=== PATIENT | female | born 1990 | race Caucasian/White ===

== ENCOUNTER 2016-10-12 13:04 | Emergency (ER) | payer SELFPAY ==
[2016-10-12] MEDS ORDERED: Sodium Chloride 0.9% 1000 ML 1,000 ML IV STA (13:26)
[2016-10-12] MEDS ORDERED: Zyprexa Zydis 5 MG PO ONE ×2 (13:27→13:44)
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
[2016-10-12] MEDS ORDERED: Sodium Chloride 0.9% 1000 ML 1,000 ML ONE (13:44)
[2016-10-12 13:46] LABS: BASOPHIL % 0.2 % (0.0-0.4); Eosinophil % 0.6 % (0.00-5.0); Granulocytes % 66.5 % (36.0-66.0); Lymphocytes % 23.9 % (24.0-44.0); Mean Cell Volume 90.4 fl (78-100); Mean Corpuscular Hemoglobin 32.1 pg (26-32); Mean Platelet Volume 9.5 fl (6-9.5); Monocytes % 8.8 % (0.0-12.0); Platelet Count 244 K/mm3 (150-450); Red Blood Count 4.58 M/mm3 (4.1-5.4); Red Cell Distribution Width 11.6 % (11.5-14.0)
[2016-10-12 13:51] LABS: ADD URINE CULTURE? YES (NO); Bacteria PACKED /HPF (NEGATIVE); Bilirubin NEGATIVE (NEGATIVE); COMPLETE URINE MICROSCOPIC? YES; Collection Type CATH; Epithelial Cells FEW /HPF (FEW); Glucose NEGATIVE (NEGATIVE); Leukocyte Esterase TRACE (NEGATIVE)
[2016-10-12 14:09] LABS: ALBUMIN 4.7 g/dL (3.4-5.0); ALKALINE PHOSPHATASE 79 U/L (46-116); BLOOD UREA NITROGEN 16 mg/dL (9-20); CHLORIDE 102 mEq/L (98-107); Carbon Dioxide 24.7 mEq/L (21-32); Glucose 104 MG/DL (70-110); Potassium 3.2 mEq/L (3.5-5.1); SGOT/AST 29 U/L (15-37); SGPT/ALT 35 U/L (12-78); SODIUM 140 mEq/L (136-145); Total Protein 7.4 gm/dL (6.4-8.2)
[2016-10-12 14:22] VITALS: O2SAT 100
[2016-10-12 15:29] VITALS: BP 136/71; PULSE 92
== END 2016-10-12 15:30 | disposition home or self-care (01) ==
LOC: ED 13:04
DX: F19.90 Other psychoactive substance use, unspecified, uncomplicated (principal); G40.909 Epilepsy, unspecified, not intractable, without status epilepticus
CPT/HCPCS: 36000; 36415; 80053; 81000; 84703; 85025; 87077; 87086; 87186; 93005; 93041; 96360; 99284; 99285; A9270-GY

== ENCOUNTER 2019-11-24 21:27 | Emergency (ER) | payer BC, OTHER ==
[2019-11-24 22:00] LABS: Absolute Neutrophil Ct (ANC) 7.84 (1.4-6.9); BASOPHIL % 0.3 % (0.0-0.4); Basophil (Absolute #) 0.04 (0-0.4); Eosinophil % 1.3 % (0.00-5.0); Eosinophil (Absolute #) 0.15 (0-0.5); Hematocrit 40.3 % (35-47); Hemoglobin 13.7 gm/dl (12.0-16.0); Lymphocyte (Absolute #) 2.71 (1.0-4.6); Lymphocytes % 22.8 % (24.0-44.0); Mean Cell Volume 91.6 fl (78-100); Mean Corpuscular Hemoglobin 31.1 pg (26-32); Mean Platelet Volume 9.3 fl (7.5-11.0); Monocyte (Absolute #) 1.14 (0.0-1.3); Monocytes % 9.6 % (0.0-12.0); Platelet Count 252 K/mm3 (150-450); Red Cell Distribution Width 11.8 % (11.5-14.0); White Blood Count 11.9 K/mm3 (4.0-10.5)
[2019-11-24 22:05] LABS: ALBUMIN 4.7 g/dL (3.5-5.0); ALKALINE PHOSPHATASE 70 U/L (38-126); ANION GAP 10.9 MEQ/L (5-15); BLOOD UREA NITROGEN 14 mg/dL (7-17); CHLORIDE 102 mmol/L (98-107); Calcium 9.2 mg/dL (8.4-10.2); Carbon Dioxide 27 mmol/L (22-30); Creatinine 1 0.68 mg/dL (0.52-1.04); EST GLOMERULAR FILTRATION RATE > 60.0 ML/MIN; Glucose 101 mg/dL (74-106); Potassium 3.5 mmol/L (3.5-5.1); SGOT/AST 28 U/L (14-36); SGPT/ALT 27 U/L (0-35); SODIUM 137 mmol/L (137-145); Total Protein 7.6 g/dL (6.3-8.2)
[2019-11-24 22:13] LABS: ACETAMINOPHEN < 10 ug/ml (10-30); SALICYLATE < 1.0 mg/dL (2-20)
[2019-11-24 22:14] LABS: ETHYL ALCOHOL < 10 mg/dL (0-10)
[2019-11-24 22:17] LABS: Appearance SLIGHTLY CLOUDY (CLEAR); Bacteria MODERATE /HPF (NEGATIVE); Bilirubin NEGATIVE (NEGATIVE); Blood MODERATE Ery/ul (0-5); Glucose NEGATIVE (NEGATIVE); Hyaline Casts 0-2 /LPF (0-2); Ketones TRACE (NEGATIVE); Leukocyte Esterase TRACE (NEGATIVE); Mucus MODERATE /HPF (NEGATIVE); Nitrite POSITIVE (NEGATIVE); Protein,Urine Dip 30 (Negative); Specific Gravity 1.028 (1.005-1.025); Urobilinogen NEGATIVE mg/dL (0-1)
[2019-11-24 22:24] LABS: Barbiturate,Urine NEGATIVE (NEGATIVE); Benzodiazepine,Urine NEGATIVE (NEGATIVE); Cocaine,Urine NEGATIVE (NEGATIVE); Methadone,Urine NEGATIVE (NEGATIVE); Opiate,Urine NEGATIVE (NEGATIVE); PCP,Urine NEGATIVE (NEGATIVE); THC,Urine POSITIVE (NEGATIVE)
--- NOTE | 2019-11-24 22:40 | ERPHSYRPT ---
- History of Present Illness Time Seen by Provider: 11/24/19 21:30 Source: patient Exam Limitations: no limitations Patient Subjective Stated Complaint: "I got pulled over and here I am." Triage Nursing Assessment: Pt presented alert et oriented x3 answering questions appropriately. Pt reported being pulled over by police. Pt denied any trauma or injury. Pt stated "I have meth and marijuana in my system." Pt denied any headache, dizziness, visual/auditory disturbances, chest pain, shortness of breath, abdominal pain, nausea/vomiting. Pupils 4mm brisk bilateral reaction. Oral mucosa pink/moist. Neck supple non-tender. Symmetrical chest expansion. Heart tones regular/clear. Lungs clear with adequate airflow. Radial pulses equal bilateral. Timing/Duration: today Severity: mild Modifying Factors: Improves With: nothing Associated Symptoms: denies symptoms Allergies/Adverse Reactions: Antihistamines - Alkylamine Allergy (Severe, Verified 11/24/19 21:31) BLADDER SHUTS DOWN cephalexin monohydrate [From Keflex] Allergy (Mild, Verified 11/24/19 21:31) Hives/VOMIT latex Allergy (Mild, Verified 11/24/19 21:31) EATS MY SKIN sulfamethoxazole [From Bactrim] Allergy (Mild, Verified 11/24/19 21:31) HIVES/VOMIT trimethoprim [From Bactrim] Allergy (Mild, Verified 11/24/19 21:31) HIVES/VOMIT erythromycin base Adverse Reaction (Mild, Verified 11/24/19 21:31) Vomiting Hx Tetanus, Diphtheria Vaccination/Date Given: No Hx Influenza Vaccination/Date Given: No Hx Pneumococcal Vaccination/Date Given: No Travel Risk - International Travel Have you traveled outside of the country in past 3 weeks: No - Coronavirus Screening Are you exhibiting any of the following symptoms?: No Close contact with a COVID-19 positive Pt in past 14-21 Days: No - Review of Systems Constitutional: No Symptoms, No Fever, No Chills Eyes: No Symptoms Ears, Nose, & Throat: No Symptoms Respiratory: No Symptoms, No Cough, No Dyspnea Cardiac: No Symptoms, No Chest Pain, No Edema, No Syncope Abdominal/Gastrointestinal: No Symptoms, No Abdominal Pain, No Nausea, No V omiting, No Diarrhea Genitourinary Symptoms: No Symptoms, Other (Patient admits to dysuria.), No Dysuria Musculoskeletal: No Symptoms, No Back Pain, No Neck Pain Skin: No Symptoms, No Rash Neurological: No Symptoms, No Dizziness, No Focal Weakness, No Sensory Changes Psychological: No Symptoms Endocrine: No Symptoms Hematologic/Lymphatic: No Symptoms Immunological/Allergic: No Symptoms All Other Systems: Reviewed and Negative - Past Medical History Pertinent Past Medical History: Yes Neurological History: Migraines ENT History: No Pertinent History Cardiac History: No Pertinent History Respiratory History: Asthma Endocrine Medical History: No Pertinent History Musculoskeletal History: No Pertinent History, Other GI Medical History: No Pertinent History History: Other Psycho-Social History: Anxiety, Depression Female Reproductive Disorders: Abnormal Uterine Bleeding, Endometriosis, Menstrual Problems, Other Other Medical History: CHRONIC BACK PAIN. 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 - Social History Smoking Status: Current every day smoker How long have you smoked: 19 Exposure to second hand smoke: Yes Alcohol Use: Socially Drug Use: marijuana, bath salts, methamphetamines Patient Lives Alone: No Significant Family History: no pertinent family hx - Female History Hx Now: No - Nursing Vital Signs Nursing Vital Signs: Initial Vital Signs Temperature 98.6 F 11/24/19 21:28 Pulse Rate 102 H 11/24/19 21:28 Respiratory Rate 18 11/24/19 21:28 Blood Pressure 134/76 11/24/19 21:28 O2 Sat by Pulse Oximetry 98 11/24/19 21:28 Pain Scale Pain Intensity 0 - Physical Exam General Appearance: no apparent distress, alert Eye Exam: PERRL/EOMI, eyes nml inspection Ears, Nose, Throat Exam: normal ENT inspection, TMs normal, pharynx normal, moist mucous membranes Neck Exam: normal inspection, non-tender, supple, full range of motion Respiratory Exam: normal breath sounds, lungs clear, No respiratory distress Cardiovascular Exam: regular rate/rhythm, normal heart sounds, normal peripheral pulses Gastrointestinal/Abdomen Exam: soft, normal bowel sounds, No tenderness, No mass Back Exam: normal inspection, normal range of motion, No CVA tenderness, No vertebral tenderness Extremity Exam: normal inspection, normal range of motion, pelvis stable Neurologic Exam: alert, oriented x 3, cooperative, normal mood/affect, nml cerebellar function, nml station & gait, sensation nml, No motor deficits Skin Exam: normal color, warm, dry, No rash Lymphatic Exam: No adenopathy SpO2 Interpretation: normal SpO2: 98 O2 Delivery: Room Air - Course Nursing assessment & vital signs reviewed: Yes Ordered Tests: Active Orders 24 hr Category Date Time Status ACETAMINOPHEN Stat Lab 11/24/19 21:40 Completed CBC W DIFF Stat Lab 11/24/19 21:40 Completed CMP Stat Lab 11/24/19 21:40 Completed CULTURE,URINE Stat Lab 11/24/19 20:45 Received ETHYL ALCOHOL Stat Lab 11/24/19 21:40 Completed HCG,QUALITATIVE URINE Stat Lab 11/24/19 20:45 Completed SALICYLATE Stat Lab 11/24/19 21:40 Completed UA W/RFX UR CULTURE Stat Lab 11/24/19 20:45 Completed Urine Triage Profile Stat Lab 11/24/19 20:45 Completed Medication Summary Discontinued Medications Generic Name Dose Route Start Last Admin Trade Name Jaysonq PRN Reason Stop Dose Admin Nitrofurantoin Macrocrystals 100 mg 11/24/19 22:41 11/24/19 22:49 Macrobid 100mg Capsule PO 11/24/19 22:42 100 mg STAT ONE Administration Nitrofurantoin Macrocrystals Confirm 11/24/19 22:48 Macrobid 100mg Capsule Administered 11/24/19 22:49 Dose 100 mg .ROUTE .[facility] ONE Lab/Rad Data: Laboratory Result Diagrams 11/24/19 21:40 11/24/19 21:40 Laboratory Results 11/24/19 11/24/19 11/24/19 Range/Units 21:40 21:40 20:45 WBC 11.9 H (4.0-10.5) K/mm3 RBC 4.40 (4.1-5.4) M/mm3 Hgb 13.7 (12.0-16.0) gm/dl Hct 40.3 (35-47) % MCV 91.6 (78-100) fl MCH 31.1 (26-32) pg MCHC 34.0 (32-36) g/dl RDW 11.8 (11.5-14.0) % Plt Count 252 (150-450) K/mm3 MPV 9.3 (7.5-11.0) fl Gran % 66.0 (36.0-66.0) % Eos # (Auto) 0.15 (0-0.5) Absolute Lymphs (auto) 2.71 (1.0-4.6) Absolute Monos (auto) 1.14 (0.0-1.3) Lymphocytes % 22.8 L (24.0-44.0) % Monocytes % 9.6 (0.0-12.0) % Eosinophils % 1.3 (0.00-5.0) % Basophils % 0.3 (0.0-0.4) % Absolute Granulocytes 7.84 H (1.4-6.9) Basophils # 0.04 (0-0.4) Sodium 137 (137-145) mmol/L Potassium 3.5 (3.5-5.1) mmol/L Chloride 102 (98-107) mmol/L Carbon Dioxide 27 (22-30) mmol/L Anion Gap 10.9 (5-15) MEQ/L BUN 14 (7-17) mg/dL Creatinine 0.68 (0.52-1.04) mg/dL Estimated GFR > 60.0 ML/MIN Glucose 101 (74-106) mg/dL Calcium 9.2 (8.4-10.2) mg/dL Total Bilirubin 0.50 (0.2-1.3) mg/dL AST 28 (14-36) U/L ALT 27 (0-35) U/L Alkaline Phosphatase 70 (38-126) U/L Serum Total Protein 7.6 (6.3-8.2) g/dL Albumin 4.7 (3.5-5.0) g/dL Urine Color (YELLOW) Urine Appearance (CLEAR) Urine pH (5-6) Ur Specific Dora (1.005-1.025) Urine Protein (Negative) Urine Ketones (NEGATIVE) Urine Blood (0-5) Nelson/ul Urine Nitrite (NEGATIVE) Urine Bilirubin (NEGATIVE) Urine Urobilinogen (0-1) mg/dL Ur Leukocyte Esterase (NEGATIVE) Urine WBC (Auto) (0-5) /HPF Urine RBC (Auto) (0-2) /HPF U Hyaline Cast (Auto) (0-2) /LPF U Epithel Cells (Auto) (FEW) /HPF Urine Bacteria (Auto) (NEGATIVE) /HPF Urine Mucus (Auto) (NEGATIVE) /HPF Urine Culture Reflexed (NO) Urine Glucose (NEGATIVE) mg/dL Urine HCG, Qual NEGATIVE (Negative) Salicylates < 1.0 L (2-20) mg/dL Urine Opiates Level (NEGATIVE) Ur Methadone (NEGATIVE) Acetaminophen < 10 L (10-30) ug/ml Urine Barbiturates (NEGATIVE) Ur Phencyclidine (PCP) (NEGATIVE) Urine Amphetamine (NEGATIVE) U Benzodiazepine Level (NEGATIVE) Urine Cocaine (NEGATIVE) Urine Marijuana (THC) (NEGATIVE) Ethyl Alcohol < 10 (0-10) mg/dL 11/24/19 11/24/19 Range/Units 20:45 20:45 WBC (4.0-10.5) K/mm3 RBC (4.1-5.4) M/mm3 Hgb (12.0-16.0) gm/dl Hct (35-47) % MCV (78-100) fl MCH (26-32) pg MCHC (32-36) g/dl RDW (11.5-14.0) % Plt Count (150-450) K/mm3 MPV (7.5-11.0) fl Gran % (36.0-66.0) % Eos # (Auto) (0-0.5) Absolute Lymphs (auto) (1.0-4.6) Absolute Monos (auto) (0.0-1.3) Lymphocytes % (24.0-44.0) % Monocytes % (0.0-12.0) % Eosinophils % (0.00-5.0) % Basophils % (0.0-0.4) % Absolute Granulocytes (1.4-6.9) Basophils # (0-0.4) Sodium (137-145) mmol/L Potassium (3.5-5.1) mmol/L Chloride (98-107) mmol/L Carbon Dioxide (22-30) mmol/L Anion Gap (5-15) MEQ/L BUN (7-17) mg/dL Creatinine (0.52-1.04) mg/dL Estimated GFR ML/MIN Glucose (74-106) mg/dL Calcium (8.4-10.2) mg/dL Total Bilirubin (0.2-1.3) mg/dL AST (14-36) U/L ALT (0-35) U/L Alkaline Phosphatase (38-126) U/L Serum Total Protein (6.3-8.2) g/dL Albumin (3.5-5.0) g/dL Urine Color JERRI (YELLOW) Urine Appearance SLIGHTLY CLOUDY (CLEAR) Urine pH 5.0 (5-6) Ur Specific Dora 1.028 (1.005-1.025) Urine Protein 30 (Negative) Urine Ketones TRACE (NEGATIVE) Urine Blood MODERATE (0-5) Nelson/ul Urine Nitrite POSITIVE (NEGATIVE) Urine Bilirubin NEGATIVE (NEGATIVE) Urine Urobilinogen NEGATIVE (0-1) mg/dL Ur Leukocyte Esterase TRACE (NEGATIVE) Urine WBC (Auto) 11-15 (0-5) /HPF Urine RBC (Auto) 6-10 (0-2) /HPF U Hyaline Cast (Auto) 0-2 (0-2) /LPF U Epithel Cells (Auto) NONE (FEW) /HPF Urine Bacteria (Auto) MODERATE (NEGATIVE) /HPF Urine Mucus (Auto) MODERATE (NEGATIVE) /HPF Urine Culture Reflexed YES (NO) Urine Glucose NEGATIVE (NEGATIVE) mg/dL Urine HCG, Qual (Negative) Salicylates (2-20) mg/dL Urine Opiates Level NEGATIVE (NEGATIVE) Ur Methadone NEGATIVE (NEGATIVE) Acetaminophen (10-30) ug/ml Urine Barbiturates NEGATIVE (NEGATIVE) Ur Phencyclidine (PCP) NEGATIVE (NEGATIVE) Urine Amphetamine POSITIVE (NEGATIVE) U Benzodiazepine Level NEGATIVE (NEGATIVE) Urine Cocaine NEGATIVE (NEGATIVE) Urine Marijuana (THC) POSITIVE (NEGATIVE) Ethyl Alcohol (0-10) mg/dL - Progress Progress: improved Progress Note: 11/24/19 22:40 Patient has a suprapubic catheter, UTI. Oral Macrobid administered. A prescription for the same was provided. Work-up reveals amphetamine and THC. No indication for further evaluation or treatment at this time. Will discharge to police custody. Patient will require follow-up within 2 to 3 days for reevaluation. Plan of care discussed with patient. She understands and agrees plan of care. 11/24/19 22:44 11/24/19 23:08 Counseled pt/family regarding: lab results, diagnosis - Departure Departure Disposition: Prison/Jail Clinical Impression: Encounter for medical screening examination, UTI (urinary tract infection), Polysubstance abuse Condition: Stable Critical Care Time: No Referrals: NAVEED TORRES [Primary Care Provider] - Additional Instructions: Discharge/Care Plan VALDEZ OCONNOR was seen on 11/24/19 in the Emergency Room. The patient was counseled regarding Diagnosis,Lab results, Imaging studies, need for follow up and when to return to the Emergency Room. Prescriptions given: Discharge Note I have spoken with the patient and/or caregivers. I have explained the patient's condition, diagnosis and treatment plan based on the information available to me at this time. I have answered the patient's and/or caregiver's questions and addressed any concerns. The patient and/or caregivers have as good understanding of the patient's diagnosis, condition and treatment plan as can be expected at this point. The vital signs have been stable. The patient's condition is stable and appropriate for discharge from the emergency department. The patient will pursue further outpatient evaluation with the primary care physician or other designated or consulting physician as outlined in the discharge instructions. The patient and/or caregivers are agreeable to this plan of care and follow-up instructions have been explained in detail. The patient and/or caregivers have received these instruction. The patient/and or caregivers are aware that any significant change in condition or worsening of symptoms should prompt an immediate return to this or the closest emergency department or call 911.
[2019-11-24] MEDS ORDERED: Macrobid 100MG Capsule PO ONE (22:41)
[2019-11-24] MEDS ORDERED: Macrobid 100MG Capsule ONE (22:48)
[2019-11-24 22:52] LABS: Amphetamine,Urine POSITIVE (NEGATIVE)
[2019-11-24 23:18] VITALS: BP 97/82; PULSE 92; O2SAT 97
== END 2019-11-24 23:18 | disposition home or self-care (01) ==
LOC: ED 21:27
DX: Z02.89 Encounter for other administrative examinations (principal); N39.0 Urinary tract infection, site not specified; F19.10 Other psychoactive substance abuse, uncomplicated
CPT/HCPCS: 36415; 80053; 80307; 81001; 84703; 85025; 87077; 87086; 87186; 99283; G0480; A9270-GY

== ENCOUNTER 2021-01-13 17:08 | Emergency (ER) | payer OTHER ==
[2021-01-13 17:19] VITALS: BP 126/70; PULSE 77; O2SAT 100
--- NOTE | 2021-01-13 17:45 | ERPHSYRPT ---
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 pt has large red raised area noted behind left ear with no drainage present at this time. pt arrives p/w/d resp easy [id number] Physician History: This is a 30-year-old white female who has a posterior left ear abscess that has increased in size in 2 days. It was present 2 days ago but a friend stuck a needle in it and in the 2 days it is increased in size and tenderness. She has not had a fever. Timing/Duration: day(s) (2) Quality: painful Severity: mild (Mild) Location: other (Posterior left ear) Allergies/Adverse Reactions: Antihistamines - Alkylamine Allergy (Severe, Verified 11/24/19 21:31) BLADDER SHUTS DOWN cephalexin monohydrate [From Keflex] Allergy (Mild, Verified 11/24/19 21:31) Hives/VOMIT latex Allergy (Mild, Verified 11/24/19 21:31) EATS MY SKIN sulfamethoxazole [From Bactrim] Allergy (Mild, Verified 11/24/19 21:31) HIVES/VOMIT trimethoprim [From Bactrim] Allergy (Mild, Verified 11/24/19 21:31) HIVES/VOMIT erythromycin base Adverse Reaction (Mild, Verified 11/24/19 21:31) Vomiting Home Medications: Eszopiclone 1 mg PO HS 01/13/21 [History] Ropinirole HCl 0.5 mg [Requip 0.5 MG] 0.5 mg PO HS 01/13/21 [History] Hx Tetanus, Diphtheria Vaccination/Date Given: No Hx Influenza Vaccination/Date Given: No Hx Pneumococcal Vaccination/Date Given: No Travel Risk - International Travel Have you traveled outside of the country in past 3 weeks: No - Coronavirus Screening Are you exhibiting any of the following symptoms?: No Close contact with a COVID-19 positive Pt in past 14-21 Days: No - Vaccine Status Have you recieved a Covid-19 vaccination: Yes Asbestos Abatement Technician: Moderna - Vaccination Dates Date of 2cond Vaccination (if applicable): not due yet - Review of Systems Constitutional: No Symptoms Eyes: No Symptoms Ears, Nose, & Throat: Other (Tenderness left posterior ear with abscess) Respiratory: No Symptoms Cardiac: No Symptoms Abdominal/Gastrointestinal: No Symptoms Genitourinary Symptoms: No Symptoms Musculoskeletal: No Symptoms Skin: Other (Abscess left posterior ear) Neurological: No Symptoms Psychological: No Symptoms Endocrine: No Symptoms Hematologic/Lymphatic: No Symptoms Immunological/Allergic: No Symptoms All Other Systems: Reviewed and Negative - Past Medical History Pertinent Past Medical History: Yes Neurological History: Migraines ENT History: No Pertinent History Cardiac History: No Pertinent History Respiratory History: Asthma Endocrine Medical History: No Pertinent History Musculoskeletal History: No Pertinent History, Other GI Medical History: No Pertinent History History: Other Psycho-Social History: Anxiety, Depression Female Reproductive Disorders: Abnormal Uterine Bleeding, Endometriosis, Menstrual Problems, Other Other Medical History: CHRONIC BACK PAIN. 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 - Social History Smoking Status: Current every day smoker How long have you smoked: 19 Exposure to second hand smoke: Yes Alcohol Use: Socially Drug Use: marijuana, bath salts, methamphetamines Patient Lives Alone: No Significant Family History: no pertinent family hx - Female History Hx Last Menstrual Period: 2012 Hx Now: No - Nursing Vital Signs Nursing Vital Signs: Initial Vital Signs Temperature 97.5 F 01/13/21 17:12 Pulse Rate 77 01/13/21 17:12 Respiratory Rate 18 01/13/21 17:12 Blood Pressure 126/70 01/13/21 17:12 O2 Sat by Pulse Oximetry 100 01/13/21 17:12 Pain Scale Pain Intensity 7 - Physical Exam General Appearance: no apparent distress, alert, anxiety Eye Exam: PERRL/EOMI, eyes nml inspection Ears, Nose, Throat Exam: moist mucous membranes, other (Left posterior auricular abscess measuring 1 cm x 1 cm. There is redness present) Neck Exam: normal inspection, non-tender, supple, full range of motion Respiratory Exam: No chest tenderness, No respiratory distress Gastrointestinal/Abdomen Exam: No tenderness Pelvic Exam: not done Rectal Exam: not done Back Exam: normal inspection, normal range of motion, No CVA tenderness, No vertebral tenderness Extremity Exam: normal inspection, normal range of motion, pelvis stable Neurologic Exam: alert, oriented x 3, cooperative, neon sign mechanic II-XII nml as tested, normal mood/affect, nml cerebellar function, nml station & gait, sensation nml Skin Exam: normal color, warm, dry Lymphatic Exam: No adenopathy SpO2 Interpretation: normal SpO2: 100 Procedures - Incision and Drainage Time of Procedure: 17:30 Site: Left posterior auricular Blade Size: 15 I & D Procedure: betadine prep Results: small amount pus Progress: This patient had a infected sebaceous cyst in the left posterior auricular region. The abscess was expressed as was the contents of the cyst. It was sebaceous material - Course Nursing assessment & vital signs reviewed: Yes - Progress Progress: improved Counseled pt/family regarding: diagnosis, need for follow-up, rad results - Departure Departure Disposition: Home Clinical Impression: Infected sebaceous cyst Condition: Stable Critical Care Time: No Referrals: NAVEED TORRES [Primary Care Provider] - Additional Instructions: Wash out and rinse the left posterior radicular region with soap and water daily. May cover with a bandage. Do not use lotions ointments or creams. Expect mild bleeding initially but this should significantly decreased over the next 3 to 4 days. Make sure that you are pushing the area out during your shower and washing out area. Blot dry use a hairdryer. After dried, may apply a bandage to incision site. Use Tylenol and ibuprofen for pain control. Take your antibiotics as prescribed Prescriptions: Ciprofloxacin [Cipro 500 MG] 500 mg PO BID #14 tablet
[2021-01-13] MEDS ORDERED: Levofloxacin 500 MG Tablet PO ONE (17:49)
[2021-01-13] MEDS ORDERED: Levofloxacin 500 MG Tablet ONE (17:52)
== END 2021-01-13 18:04 | disposition home or self-care (01) ==
LOC: ED 17:08
DX: L72.3 Sebaceous cyst (principal)
CPT/HCPCS: 99283; A9270-GY